=== PATIENT | male | born 1990 | race Caucasian/White ===

== ENCOUNTER 2016-07-31 10:24 | Emergency (ER) | payer BC ==
[~2016-07-31] VITALS: Ht 177.8 cm; Wt 74.1 kg
[2016-07-31 10:42] VITALS: TEMP 98.8
[2016-07-31] MEDS ORDERED: LIALDA 1.2 GM1.2 GM PO (10:45)
[2016-07-31] MEDS ORDERED: BENTYL 10MG10 MG/CAP PO (10:46)
[2016-07-31 11:16] LABS: BASO % 0.4 % (0.0-2.0); EOS % 0.2 % (0-4.0); GRAN # 7.2 (1.4-6.5); GRAN % 70.1 % (42.2-75.2); HEMATOCRIT 46.5 % (42.0-52.0); HEMOGLOBIN 16.7 g/dl (13.5-18.0); MEAN CELL VOLUME 86 fl (80.0-100.0); MEAN CORPUSCULAR HEMOGLOBIN 31 pg (27.0-31.0); MEAN CORPUSCULAR HGB CONC 36 g/dl (33.0-37.0); MEAN PLATELET VOLUME 10.2 fl (7.4-10.4); MONO % 9.6 % (1.7-9.3); PLATELET COUNT 189 K/mm3 (130-400); RED BLOOD COUNT 5.38 M/mm3 (4.20-5.60); REDCELL DISTRIBUTION WIDTH-CV 11.9 % (11.5-14.5); WHITE BLOOD COUNT 10.3 K/mm3 (4.8-10.8)
[2016-07-31 11:25] LABS: ALANINE AMINOTRANSFERASE 27 U/L (21-72); ALBUMIN 5.2 gm/dL (3.5-5.0); ALKALINE PHOSPHATASE 78 U/L (50-136); ANION GAP 16 mmol/L (7-16); BLOOD UREA NITROGEN 8 mg/dL (9-20); CARBON DIOXIDE 25 mmol/L (22-30); CHLORIDE 97 mmol/L (98-107); CREATININE, serum 0.83 mg/dL (0.66-1.25); GLUCOSE 102 mg/dL (74-106); LIPASE 102 U/L (23-300); POTASSIUM 3.8 mmol/L (3.4-5.0); SODIUM 138 mmol/L (137-145); TOTAL PROTEIN 8.7 gm/dL (6.4-8.2)
[2016-07-31 11:28] LABS: C-REACTIVE PROTEIN < 0.5 mg/dL (0.0-0.9)
[2016-07-31 11:48] LABS: ERYTHROCYTE SEDIMENTATION RATE 1 mm/hr (0-15)
[2016-07-31 13:07] VITALS: BP 129/71; PULSE 62
== END 2016-07-31 13:09 | disposition home or self-care (01) ==
LOC: COL.ER 10:24
PROVIDERS: Emergency Medicine
DX: K51.90 Ulcerative colitis, unspecified, without complications (principal)
CPT/HCPCS: J2060; J2405; J2930; J7030

== ENCOUNTER 2017-12-24 06:42 | Day surgery (SDC) | payer BC ==
[~2017-12-24] VITALS: Ht 182.9 cm; Wt 71.4 kg
[~2017-12-24 06:42] MED LIST: BENTYL 10MG10 MG/CAP PO; LIALDA 1.2 GM1.2 GM PO
[2017-12-24 07:11] VITALS: BP 119/52; PULSE 75; TEMP 98.9
[2017-12-24 08:20] VITALS: BP 131/91; PULSE 74; TEMP 97.8
[2017-12-24 08:30] VITALS: BP 122/61; PULSE 66
[2017-12-24 08:45] VITALS: BP 110/69; PULSE 55
== END 2017-12-24 09:28 | disposition home or self-care (01) ==
LOC: SDCO 06:42
DX: K51.90 Ulcerative colitis, unspecified, without complications (principal); K92.1 Melena; K25.7 Chronic gastric ulcer without hemorrhage or perforation; K29.30 Chronic superficial gastritis without bleeding
CPT/HCPCS: OP; J2250; J3010; J7030